=== PATIENT | female | born 1955 ===

== ENCOUNTER 2018-08-24 02:54 | Emergency (ER) | payer OTHER ==
[2018-08-24 03:02] VITALS: O2SAT 98
[2018-08-24] MEDS ORDERED: Oxycodone/Acetaminophen 5/325 mg Tab PO STA (03:22)
[2018-08-24] MEDS ORDERED: Oxycodone/Acetaminophen 5/325 mg Tab ONE (03:27)
--- NOTE | 2018-08-24 03:30 | ED PDOC ---
HPI: Trauma/Fall - HPI Time Seen by Provider: 08/24/18 03:05 Chief Complaint (Nursing): Trauma Chief Complaint (Provider): Trauma History Per: Patient History/Exam Limitations: no limitations Additional Complaint(s): 63 y/o female presents to the ED for evaluation of facial trauma s/p mechanical fall. Patient reports she fell and hit her face on the sidewalk and cut her eyebrow and lip. Patient is complaining of facial pain and upper lip pain. Denies any loss of consciousness, dizziness or vomiting. - Fall Fall:Prior To Injury: Tripped Past Medical History Reviewed: Historical Data, Nursing Documentation, Vital Signs Vital Signs: Last Vital Signs Temp 98.1 F 08/24/18 02:55 Pulse 100 H 08/24/18 02:55 Resp 16 08/24/18 02:55 BP 153/88 H 08/24/18 02:55 Pulse Ox 98 08/24/18 02:55 - Medical History PMH: No Chronic Diseases - Family History Family History: States: Unknown Family Hx - Allergies Allergies/Adverse Reactions: Allergies Allergy/AdvReac Type Severity Reaction Status Date / Time No Known Allergies Allergy Verified 08/24/18 02:56 Review of Systems ROS Statement: Except As Marked, All Systems Reviewed And Found Negative Gastrointestinal: Negative for: Vomiting Musculoskeletal: Positive for: Other (facial pain) Neurological: Negative for: Dizziness Physical Exam - Reviewed Nursing Documentation Reviewed: Yes Vital Signs Reviewed: Yes - Physical Exam Appears: Positive for: Well, Non-toxic, No Acute Distress Head Exam: Negative for: ATRAUMATIC (abrasion to right philtrum; abrasion to right eyebrow) Skin: Positive for: Normal Color, Warm, DRY Eye Exam: Positive for: EOMI, Normal appearance, PERRL ENT: Positive for: Other (swelling to upper lip; tenderness to palpation of 2 front teeth, no laxity, no bleeding from gums) Neck: Positive for: Normal, Painless ROM Cardiovascular/Chest: Positive for: Regular Rate, Rhythm. Negative for: Murmur Respiratory: Positive for: Normal Breath Sounds. Negative for: Respiratory Distress Extremity: Positive for: Normal ROM. Negative for: Pedal Edema, Deformity Neurological/Psych: Positive for: Awake, Alert, Normal Tone, Oriented (x3). Negative for: Motor/Sensory Deficits - ECG O2 Sat by Pulse Oximetry: 98 (RA) Pulse Ox Interpretation: Normal Medical Decision Making Medical Decision Making: Time: 03:21 MDM: Workup for facial trauma. Patient had no loss of consciousness, dizziness, vomiting. There is no indication for brain CT. * CT Maxillofacial * Percocet for pain 05:10 CT Maxillofacial Findings: Acute displaced fracture of the right nasal bone. Overlying soft tissue edema and swelling. Right frontal subgaleal soft tissue hematoma. Normal bilateral orbital contents. Normal bilateral medial and inferior orbital youngblood. Normal bilateral maxillary bones. Normal bilateral maxillary sinuses. Normal bilateral frontozygomatic arches. Normal bilateral zygomatic temporal arches. Normal anterior nasal spine. Normal visualized frontal, ethmoidal and sphenoid sinuses. Impression: Acute displaced fracture of the right nasal bone. Overlying soft tissue edema and swelling. Right frontal subgaleal soft tissue hematoma. Thank you for your kind referral of this patient. 05:43 CT shows acute displaced fracture of the right nasal bone. Patient is to be discharged home. Patient to take Ibuprofen for pain and was given note for 2 days work absence. Patient was also given referral to follow up with oral maxillofacial surgeon. Scribe Attestation: Documented by Vinay Montes, acting as a scribe for [place] Jordan MD. Provider Scribe Attestation: All medical record entries made by the Scribe were at my direction and personally dictated by me. I have reviewed the chart and agree that the record accurately reflects my personal performance of the history, physical exam, medical decision making, and the department course for this patient. I have also personally directed, reviewed, and agree with the discharge instructions and disposition. Disposition - Clinical Impression Clinical Impression: Nasal bones, closed fracture - Disposition Referrals: [facility] [Provider Group] Saniya Landeros DDS [Doctor Dental Surgery] - Disposition: Routine/Home Disposition Time: 05:46 Condition: IMPROVED Additional Instructions: Take Sudafed as needed for congestion. Take Ibuprofen or Tylenol as needed for pain. Follow up with oral-maxilofacial surgery office or Ear Nose Throat office as referred. Return to the emergency department if symptoms worsen or if new symptoms develop. Instructions: Nose Fracture (DC) Forms: [facility] (Hungarian), [facility] ED School/Work Excuse Print Language: BRUNEIAN
[2018-08-24 06:12] VITALS: BP 155/80; PULSE 91; RESP 17; TEMP 98.6
--- NOTE | 2018-08-24 09:56 | CT ---
Date of service: 08/24/2018 PROCEDURE: CT MAXILLOFACIAL BONES WITHOUT CONTRAST HISTORY: facial swelling s/p fall COMPARISON: None available. TECHNIQUE: Contiguous axial CT images of the maxillofacial bones were obtained. Coronal and sagittal reformats were generated. Radiation dose: Total exam DLP = 730.88 mGy-cm. This CT exam was performed using one or more of the following dose reduction techniques: Automated exposure control, adjustment of the mA and/or kV according to patient size, and/or use of iterative reconstruction technique. FINDINGS: NASAL BONES: There is an acute mildly displaced fracture in the frontal process of the right maxilla. There is mild overlying soft tissue swelling. No acute left nasal bone fracture. ORBITS: No acute fracture. There is mild right supraorbital soft tissue swelling. No acute intra orbital injury. PARANASAL SINUSES/ MASTOIDS: Predominantly clear. MAXILLA: No acute fracture. MANDIBLE/ TEMPOROMANDIBULAR JOINTS: No acute fracture or dislocation. SKULL BASE: Unremarkable. TEMPORAL BONES: Middle ears and mastoid grossly unremarkable. OTHER FINDINGS: None. IMPRESSION: Acute mildly displaced fracture in the frontal process of the right maxilla with overlying soft tissue swelling. No acute orbital or maxillofacial fracture. Mild right supraorbital soft tissue swelling. A preliminary report was provided by [email or web address].
== END 2018-08-24 06:11 | disposition home or self-care (01) ==
LOC: H.ER 02:54
DX: S02.2XXA Fracture of nasal bones, initial encounter for closed fracture (principal); W18.30XA Fall on same level, unspecified, initial encounter; Y92.480 Sidewalk as the place of occurrence of the external cause